=== PATIENT | female | born 1975 | race African-American/Black ===

== ENCOUNTER 2017-07-28 08:08 | Emergency (ER) | payer MEDICAID ==
[~2017-07-28] VITALS: Ht 157.5 cm; Wt 59.0 kg
[~2017-07-28 08:08] MED LIST: HYDR2TAB4 PO; IBUP800T37 PO; METH0.2T6 PO; ONDA4TAB PO
[2017-07-28] MEDS ORDERED: NS(*) 0.9% 1000 ML BAG 1,000 ML IV ONE (08:30)
[2017-07-28] MEDS ORDERED: ONDANSETRON 4 MG/2 ML VIAL IVP ONE (08:30)
[2017-07-28] MEDS ORDERED: GI COCKTAIL 60 ML BTL PO PRN (08:30)
--- NOTE | 2017-07-28 08:37 | ER Report ---
History and Physical Time Seen By MD: 08:20 Hx. of Stated Complaint: PT PRESENTS WITH EPIGASTRIC PAIN SINCE LAST NIGHT, AFTER EATING SPAGHETTI, NO N/V/D HPI/ROS CHIEF COMPLAINT: Abdominal pain HISTORY OF PRESENT ILLNESS: This is a 42-year-old female from [facility] the country 13 years she is a G9 para 7 comes emergency Department today last menstrual period was last month on the with epigastric pain worse with lying flat made worse with food has a known history of gastric reflux disorder was. With Gen. surgery for upper endoscopy failed to do such comes in today since she's been on medication but none recently for her upper GI issues denies any urinary bladder bowel incontinence denies any nausea vomiting diarrhea fever or chills pain is localized to the epigastrium described as burning sharp stabbing rating up into her throat again worse when she lays flat patient has no additional complaints at this time REVIEW OF SYSTEMS: Respiratory: No cough, no dyspnea. Cardiovascular: No chest pain, no palpitations. Gastrointestinal: Epigastric pain with radiation into the chest no vomiting no diarrhea Musculoskeletal: No back pain. Remainder of the 14 system rev: Yes Allergies: Coded Allergies: No Known Drug Allergies (Unverified , 07/28/17) Home Meds Discontinued Reported Medications Methylergonovine Mal 0.2 Mg Tab (METHERGINE 0.2 MG TAB) 0.2 Mg Tablet, 0.2 MG PO , TAB 03/04/17 Discontinued Scripts Ibuprofen (IBUPROFEN) 800 Mg Tablet, 1 TAB PO Q8H, #30 TAB 0 Refills Take with food every 8 hours. Prov:ALAINA CARRANZA MD 03/04/17 Hydromorphone Hcl (HYDROMORPHONE HCL) 2 Mg Tablet, 2-4 MG PO Q4H for PAIN, #20 TAB 0 Refills Prov:ALAINA CARRANZA MD 03/04/17 Ondansetron (ZOFRAN ODT) 4 Mg Tab.rapdis, 4 MG PO Q6H Y for NAUSEA/VOMITING, # 20 TAB.BILL Prov:CHITO IGLESIAS 02/19/17 Reviewed Nurses Notes: Yes Old Medical Records Reviewed: Yes Hx Smoking: No Exposure to Second Hand Smoke?: No Hx Substance Use Disorder: No Hx Alcohol Use: No Constitutional Vital Sign - Last 24 Hours 07/28/17 07/28/17 07/28/17 07/28/17 08:13 08:14 08:30 08:40 Temp 97.9 Resp 20 B/P (MAP) 141/104 141/104 (116) 127/95 (106) 132/96 (108) Physical Exam General Appearance: The patient is alert, has no immediate need for airway protection and no current signs of toxicity. Appears uncomfortable Eyes: Pupils equal and round no injection. Respiratory: Chest is non tender, lungs are clear to auscultation. Cardiac: regular rate and rhythm [ ] Gastrointestinal: Abdominal examination shows some mild tenderness to deep palpation in the epigastrium otherwise of the 4 quadrants unremarkable no rebound guarding or masses Musculoskeletal: Neck: Neck is supple and non tender. Extremities have full range of motion and are non tender. Skin: No rashes or lesions. [ ] DIFFERENTIAL DIAGNOSIS: After history and physical exam differential diagnosis was considered for gastroesophageal reflux gastritis acute gastritis alcoholic pancreatitis pancreatitis gallstone pancreatitis cardiac myopathy cardiac ischemia Medical Decision Making Data Points Result Diagram: 07/28/17 0850 07/28/17 0850 Laboratory Hematology Test 07/28/17 08:41 07/28/17 08:50 Urine Color Yellow Urine Clarity Clear Urine pH 5.0 pH (4.8-9.5) Urine Specific [place] 1.018 Urine Protein Negative mg/dL (NEGATIVE) Urine Glucose (UA) Negative mg/dL (NEGATIVE) Urine Ketones Negative mg/dL (NEGATIVE) Urine Blood Negative (NEGATIVE) Urine Nitrite Negative (NEGATIVE) Urine Bilirubin Negative (NEGATIVE) Urine Urobilinogen Negative mg/dL (0.2-1.9) Urine Leukocyte Esterase Negative (NEGATIVE) Urine RBC 1 /HPF (0-2/HPF) Urine WBC 1 /HPF (0-5/HPF) Urine Squamous Epithelial Cells Many /LPF (</=FEW) Urine Bacteria Negative /HPF (NONE-FEW) Urine Mucus Few /HPF (NONE-FEW) Red Blood Count 4.95 M/uL (4.17-5.56) Mean Corpuscular Volume 82.8 fL (80.0-96.0) Mean Corpuscular Hemoglobin 28.1 pg (26.0-33.0) Mean Corpuscular Hemoglobin Concent 33.9 g/dL (32.0-36.0) Red Cell Distribution Width 14.9 % (11.5-14.5) Mean Platelet Volume 8.9 fL (7.2-11.1) Neutrophils (%) (Auto) 60.6 % (39.4-72.5) Lymphocytes (%) (Auto) 31.3 % (17.6-49.6) Monocytes (%) (Auto) 6.2 % (4.1-12.4) Eosinophils (%) (Auto) 1.0 % (0.4-6.7) Basophils (%) (Auto) 0.9 % (0.3-1.4) Nucleated RBC Relative Count (auto) 0.1 /100WBC Neutrophils # (Auto) 4.1 K/uL (2.0-7.4) Lymphocytes # (Auto) 2.1 K/uL (1.3-3.6) Monocytes # (Auto) 0.4 K/uL (0.3-1.0) Eosinophils # (Auto) 0.1 K/uL (0.0-0.5) Basophils # (Auto) 0.1 K/uL (0.0-0.1) Nucleated RBC Absolute Count (auto) 0.01 K/uL Prothrombin Time 13.2 seconds (12.0-14.4) Prothromb Time International Ratio 1.00 Activated Partial Thromboplast Time 27 seconds (23-35) Sodium Level 141 mmol/L (137-145) Potassium Level 4.0 mmol/L (3.5-5.0) Chloride Level 104 mmol/L (98-107) Carbon Dioxide Level 21 mmol/L (22-31) Blood Urea Nitrogen 8 mg/dl (7-18) Creatinine 0.80 mg/dl (0.52-1.04) Glomerular Filtration Rate Calc > 60.0 Random Glucose 111 mg/dl (75-110) Calcium Level 9.7 mg/dl (8.4-10.2) Total Bilirubin 0.6 mg/dl (0.2-1.3) Aspartate Amino Transf (AST/SGOT) 20 U/L (0-35) Alanine Aminotransferase (ALT/SGPT) 28 U/L (0-56) Alkaline Phosphatase 108 U/L (0-126) Troponin I < 0.012 ng/ml Total Protein 8.9 gm/dl (6.3-8.2) Albumin 4.6 g/dl (3.5-5.0) Lipase 57 U/L (23-300) Human Chorionic Gonadotropin, Qual Negative (NEGATIVE) Serum Alcohol < 10 mg/dl Chemistry Test 07/28/17 08:41 07/28/17 08:50 Urine Color Yellow Urine Clarity Clear Urine pH 5.0 pH (4.8-9.5) Urine Specific [place] 1.018 Urine Protein Negative mg/dL (NEGATIVE) Urine Glucose (UA) Negative mg/dL (NEGATIVE) Urine Ketones Negative mg/dL (NEGATIVE) Urine Blood Negative (NEGATIVE) Urine Nitrite Negative (NEGATIVE) Urine Bilirubin Negative (NEGATIVE) Urine Urobilinogen Negative mg/dL (0.2-1.9) Urine Leukocyte Esterase Negative (NEGATIVE) Urine RBC 1 /HPF (0-2/HPF) Urine WBC 1 /HPF (0-5/HPF) Urine Squamous Epithelial Cells Many /LPF (</=FEW) Urine Bacteria Negative /HPF (NONE-FEW) Urine Mucus Few /HPF (NONE-FEW) White Blood Count 6.8 k/uL (4.5-11.0) Red Blood Count 4.95 M/uL (4.17-5.56) Hemoglobin 13.9 g/dL (12.0-16.0) Hematocrit 41.0 % (34.0-47.0) Mean Corpuscular Volume 82.8 fL (80.0-96.0) Mean Corpuscular Hemoglobin 28.1 pg (26.0-33.0) Mean Corpuscular Hemoglobin Concent 33.9 g/dL (32.0-36.0) Red Cell Distribution Width 14.9 % (11.5-14.5) Platelet Count 278 K/uL (150-450) Mean Platelet Volume 8.9 fL (7.2-11.1) Neutrophils (%) (Auto) 60.6 % (39.4-72.5) Lymphocytes (%) (Auto) 31.3 % (17.6-49.6) Monocytes (%) (Auto) 6.2 % (4.1-12.4) Eosinophils (%) (Auto) 1.0 % (0.4-6.7) Basophils (%) (Auto) 0.9 % (0.3-1.4) Nucleated RBC Relative Count (auto) 0.1 /100WBC Neutrophils # (Auto) 4.1 K/uL (2.0-7.4) Lymphocytes # (Auto) 2.1 K/uL (1.3-3.6) Monocytes # (Auto) 0.4 K/uL (0.3-1.0) Eosinophils # (Auto) 0.1 K/uL (0.0-0.5) Basophils # (Auto) 0.1 K/uL (0.0-0.1) Nucleated RBC Absolute Count (auto) 0.01 K/uL Prothrombin Time 13.2 seconds (12.0-14.4) Prothromb Time International Ratio 1.00 Activated Partial Thromboplast Time 27 seconds (23-35) Glomerular Filtration Rate Calc > 60.0 Calcium Level 9.7 mg/dl (8.4-10.2) Total Bilirubin 0.6 mg/dl (0.2-1.3) Aspartate Amino Transf (AST/SGOT) 20 U/L (0-35) Alanine Aminotransferase (ALT/SGPT) 28 U/L (0-56) Alkaline Phosphatase 108 U/L (0-126) Troponin I < 0.012 ng/ml Total Protein 8.9 gm/dl (6.3-8.2) Albumin 4.6 g/dl (3.5-5.0) Lipase 57 U/L (23-300) Human Chorionic Gonadotropin, Qual Negative (NEGATIVE) Serum Alcohol < 10 mg/dl Coagulation Test 07/28/17 08:50 Prothrombin Time 13.2 seconds Prothromb Time International Ratio 1.00 Activated Partial Thromboplast Time 27 seconds Toxicology Test 07/28/17 08:50 Serum Alcohol < 10 mg/dl Urinalysis Test 07/28/17 08:41 Urine Color Yellow Urine Clarity Clear Urine pH 5.0 pH (4.8-9.5) Urine Specific [place] 1.018 Urine Protein Negative mg/dL (NEGATIVE) Urine Glucose (UA) Negative mg/dL (NEGATIVE) Urine Ketones Negative mg/dL (NEGATIVE) Urine Blood Negative (NEGATIVE) Urine Nitrite Negative (NEGATIVE) Urine Bilirubin Negative (NEGATIVE) Urine Urobilinogen Negative mg/dL (0.2-1.9) Urine Leukocyte Esterase Negative (NEGATIVE) Urine RBC 1 /HPF (0-2/HPF) Urine WBC 1 /HPF (0-5/HPF) Urine Squamous Epithelial Cells Many /LPF (</=FEW) Urine Bacteria Negative /HPF (NONE-FEW) Urine Mucus Few /HPF (NONE-FEW) ED Course/Re-evaluation ED Course ED clinical course 42-year-old female with obvious gastroesophageal reflux was started on PPI and pain medication seen by surgery at bedside due to an ultrasound demonstrating cholelithiasis with choledocholithiasis will follow up as an outpatient for elective gallbladder removal Decision to Disposition Date: Jul 28, 2017 Decision to Disposition Time: 12:00 Depart Departure Latest Vital Signs Vital Signs Date Time Temp Pulse Resp B/P (MAP) Pulse Ox O2 Delivery O2 Flow Rate FiO2 07/28/17 08:40 132/96 (108) 07/28/17 08:13 97.9 20 Impression: Primary Impression: GERD (gastroesophageal reflux disease) Additional Impression: Gall bladder stones Condition: Improved Disposition: HOME OR SELF-CARE Referrals: JES ZAVALA MD 5 Days New Scripts Pantoprazole Sodium (PROTONIX) 40 Mg Granpkt.dr 40 MG PO QDAY for 10 Days, #10 PACK Prov: PREETHI RAYA MD 07/28/17 Hydrocodone Bit/Acetaminophen (NORCO 5-325 TABLET) 1 Each Tablet 1 EACH PO 2-3XD for 10 Days, #14 TAB Prov: PREETHI RAYA MD 07/28/17 Patient Instructions: Gastroesophageal Reflux Disease (DC) Problem Qualifiers PREETHI RAYA MD Jul 28, 2017 08:37
[2017-07-28] MEDS ORDERED: MAG HYD/AL HYD/SIMETH 30ML UDC PO ONE (09:00)
[2017-07-28] MEDS ORDERED: LIDOCAINE 2% VISC SLN 15ML UDC PO ONE (09:00)
[2017-07-28 09:07] LABS: PLATELET COUNT, AUTOMATED 278 K/uL (150-450)
--- NOTE | 2017-07-28 09:10 | EKG ---
FACILITY: [facility] - [place] PATIENT NAME: AZAM GILBERT : [id number] MR: [id number] V: [id number] EXAM DATE: ORDERING PHYSICIAN: PREETHI RAYA TECHNOLOGIST: Delmar Curtis Reason : Blood Pressure : / mmHG Vent. Rate : 089 BPM Atrial Rate : 089 BPM P-R Int : 164 ms QRS Dur : 076 ms QT Int : 356 ms P-R-T Axes : 016 030 052 degrees QTc Int : 433 ms Normal sinus rhythm Normal ECG When compared with ECG of 19-FEB-2017 13:06, Unchanged Confirmed by AYDE DAVIS ([id number]) on 07/28/2017 12:31:56 PM Referred By: Confirmed By:AYDE DAVIS
--- NOTE | 2017-07-28 10:16 | RADIOLOGY IMAGING REPORT ---
[place] [facility] [place]IENT NAME: Susana Cornejo : 1975 MR: [id number] V: [id number] EXAM DATE: ORDERING PHYSICIAN: PREETHI RAYA TECHNOLOGIST: Location: [facility] Patient: Susana Cornejo : 1975 Visit/Account:[id number] Date of Sevice: 07/28/2017 Exam type: CHEST PA AND LAT History: pain Comparison: None. Findings: The lungs are free of acute effusions, infiltrates or edema. No evidence of a pneumothorax or pneumo mediastinum. Cardiac silhouette is normal in size. The trachea is in midline. IMPRESSION: 1. No acute cardiopulmonary process seen Report Dictated By: Chika Cosme MD at 07/28/2017 10:11 AM Report E-Signed By: Chika Cosme MD at 07/28/2017 10:12 AM WSN:[email or web address]
--- NOTE | 2017-07-28 10:33 | RADIOLOGY IMAGING REPORT ---
FACILITY: [facility] PATIENT NAME: Susana Cornejo : 1975 MR: [id number] V: [id number] EXAM DATE: ORDERING PHYSICIAN: PREETHI RAYA TECHNOLOGIST: Location: [facility] Patient: Susana Cornejo : 1975 Visit/Account:[id number] Date of Sevice: 07/28/2017 GALLBLADDER HISTORY: Abdomen pain, sick last night COMPARISON: None. FINDINGS: Gallbladder: There are several shadowing stones within the gallbladder. Gallbladder wall is not thic kened measuring 2.6 mm. There is a negative Marley sign by technologist notation Liver: Negative. Common duct: Normal, 2.8 mm diameter. Pancreas: Partially obscured by bowel, visualized aspects unremarkable. Right kidney: Right kidney appears unremarkable measuring 9.7 cm in length Upper abdominal aorta and IVC: Patent. Ascites: None visualized. IMPRESSION: Cholelithiasis although no evidence of gallbladder wall thickening, positive Marley sign or biliary d uctal dilatation Report Dictated By: Chika Cosme MD at 07/28/2017 10:25 AM Report E-Signed By: Chika Cosme MD at 07/28/2017 10:28 AM WSN:[email or web address]
[2017-07-28 12:00] VITALS: BP 127/90
[2017-07-28] MEDS ORDERED: HYDR-4309 PO (12:02)
[2017-07-28] MEDS ORDERED: PANT40SU3 PO (12:02)
--- NOTE | 2017-07-28 12:20 | General Surgery 1 H&P ---
History of Present Illness Chief Complaint epigastric pain History of Present Illness 42 yo female who speaks Palau[place] presents with epigastric pain. it is a steady sever pain with radiation to the back. she has had a few episodes in the past but not this severe. she has nausea. she had fever. she was seen in ed . wbc and chem panel wnl. ultrasound shows cholelithiasis. History Other Past Surgeries: none Home Meds Active Scripts Pantoprazole Sodium (PROTONIX) 40 Mg Granpkt.dr, 40 MG PO QDAY for 10 Days, #10 PACK Prov:PREETHI RAYA MD 07/28/17 Hydrocodone Bit/Acetaminophen (NORCO 5-325 TABLET) 1 Each Tablet, 1 EACH PO 2- 3XD for 10 Days, #14 TAB Prov:PREETHI RAYA MD 07/28/17 Discontinued Reported Medications Methylergonovine Mal 0.2 Mg Tab (METHERGINE 0.2 MG TAB) 0.2 Mg Tablet, 0.2 MG PO , TAB 03/04/17 Discontinued Scripts Ibuprofen (IBUPROFEN) 800 Mg Tablet, 1 TAB PO Q8H, #30 TAB 0 Refills Take with food every 8 hours. Prov:ALAINA CARRANZA MD 03/04/17 Hydromorphone Hcl (HYDROMORPHONE HCL) 2 Mg Tablet, 2-4 MG PO Q4H for PAIN, #20 TAB 0 Refills Prov:ALAINA CARRANZA MD 03/04/17 Ondansetron (ZOFRAN ODT) 4 Mg Tab.rapdis, 4 MG PO Q6H Y for NAUSEA/VOMITING, # 20 TAB.BILL Prov:CHITO IGLESIAS 02/19/17 Allergies: Coded Allergies: No Known Drug Allergies (Unverified , 07/28/17) Review of Systems All Systems Reviewed/Normal: Yes Exam Vital Signs Date Time Temp Pulse Resp B/P (MAP) Pulse Ox O2 Delivery O2 Flow Rate FiO2 07/28/17 08:40 132/96 (108) 07/28/17 08:13 97.9 20 General Appearance: Alert, Awake, No Acute Distress Cardiovascular: Regular Rate and Rhythm Respiratory: Clear to Auscultation GI: Abd Soft and Non-Tender Medical Decision Making Data Points Result Diagram: 07/28/17 0850 07/28/17 0850 Assessment and Plan Problems: (1) Gall bladder stones Status: Acute Assessment & Plan: recommend laparoscopic cholecystectomy and cholangiogram. discussed procedure complications and recovery with pt using hog counter service via phone and using her son to interpret. they seem to understand and wish to proceed. ww will schedule for Wednesday. Copies to: JES ZAVALA MD Venous Thromboembolism Antithrombotics Is Pt On Any Antithrombotics?: No JES ZAVALA MD Jul 28, 2017 12:20
== END 2017-07-28 12:10 | disposition home or self-care (01) ==
LOC: ER 08:19
DX: K21.9 Gastro-esophageal reflux disease without esophagitis (principal); K80.80 Other cholelithiasis without obstruction
CPT/HCPCS: 71046; 76705; 81001; 83690; 84484; 84703; 85025; 85610; 85730; 93005; 96361; 96374; 99284; G0480; J2405; J7030; 80320; 82040; 82247; 82310; 82374; 82435; 82565; 82947; 84075; 84132; 84155; 84295; 84450; 84460; 84520

== ENCOUNTER 2017-08-03 00:32 | Day surgery (SDC) | payer MEDICAID ==
--- NOTE | 2017-07-28 16:34 | HISTORY AND PHYSICAL ---
DATE OF ADMISSION: August 03, 2017 CHIEF COMPLAINT Epigastric pain. HISTORY OF PRESENT ILLNESS This is a 42-year-old healthy female who speaks Chadian, who presented to the emergency room with epigastric pain. Her history was obtained through the bilingual interpreter via the phone. She says it is a steady, severe pain. It radiates through to the back. She has had a few episodes in the past, but they were not as severe as this. This episode caused her to come to the emergency room. She has associated nausea. She says she has had some fever in the past. On being seen in the emergency room, her white count was normal. Her chemistry panel was normal. She had an ultrasound examination which revealed cholelithiasis. PAST SURGICAL HISTORY None. ALLERGIES She has no known allergies. CURRENT MEDICATIONS She is currently on no medications. REVIEW OF SYSTEMS No cardiac, pulmonary, liver or kidney disease, diabetes, hypertension. No history of deep vein thrombosis. PHYSICAL EXAMINATION GENERAL: Examination reveals a 42-year-old female in no acute distress. LUNGS: Clear. HEART: Regular rhythm. ABDOMEN: Soft, nontender. No palpable masses. IMPRESSION Cholelithiasis and cholecystitis. PLAN Laparoscopic cholecystectomy with intraoperative cholangiogram. We discussed the procedure with the patient using a phone bilingual interpreter, as well as using her son to interpret. We discussed the complications and recovery, the operation and how long it would take, the fact that she needs to be n.p.o. and that she will be going home the same day of the procedure. We have tentatively scheduled this for one week on a Wednesday. She seems to understand and wishes to proceed. INNA
[2017-08-03] VITALS (9 sets, daily range): BP systolic 119–138; BP diastolic 82–97
[~2017-08-03] VITALS: Ht 157.5 cm; Wt 59.0 kg
[~2017-08-03 00:32] MED LIST changes: +HYDR-4309 PO; +PANT40SU3 PO
[2017-08-03] MEDS ORDERED: ROPIVACAINE 0.2% 20 ML VIAL ONE (06:46)
[2017-08-03] MEDS ORDERED: IOPAMIDOL 61% 75 ML INFUS BTL 75 ML ONE (06:46)
[2017-08-03] MEDS ORDERED: fentaNYL CITR 250 MCG/5 ML AMP ONE (07:48)
[2017-08-03] MEDS ORDERED: LIDOCAINE MPF 1% 5 ML VIAL ONE (07:49)
[2017-08-03] MEDS ORDERED: PROPOFOL EMUL(*) 10MG/ML 20 ML 20 ML ONE (07:49)
[2017-08-03] MEDS ORDERED: NORMOSOL R SOLN(*) 1000 ML BAG 1,000 ML IV PRN (08:00)
[2017-08-03] MEDS ORDERED: MIDAZOLAM 2 MG/2 ML VIAL IVP PRN (08:00)
[2017-08-03] MEDS ORDERED: FAMOTIDINE 20 MG TAB PO ONE (08:00)
[2017-08-03] MEDS ORDERED: LIDOCAINE/SOD BICARB 8.4% SYR ID ONE (08:00)
[2017-08-03] MEDS ORDERED: cefOXitin/DEX(*) 2GM/50ML PREM 50 ML IVPB ONE (08:00)
[2017-08-03] MEDS ORDERED: FAMOTIDINE(*) 20MG/50ML PREMIX 50 ML IVPB ONE (08:12)
--- NOTE | 2017-08-03 08:26 | Post Operative Progress Note ---
Post Operative Progress Note Date: Aug 03, 2017 Time: 09:43 Surgeon: ron Anesthesia: dr spicer Pre-Op Diagnosis: cholelithiasis and cholecystitis Post-Op Diagnosis: same Procedure(s): lap sandie with JES Cerrato MD Aug 03, 2017 08:26
[2017-08-03] MEDS ORDERED: HYDR-4309 PO (08:27)
[2017-08-03] MEDS ORDERED: KET10 PO (08:27)
--- NOTE | 2017-08-03 08:28 | Short(Outpt) Discharge Summary ---
Discharge Summary Reason for Hosp/Final Diag: (1) Cholelithiasis and cholecystitis without obstruction Hospital Course & Plan: lap sandie with gram Departure Discharge to: Home Discharge Instructions Home Meds Active Scripts Hydrocodone Bit/Acetaminophen (NORCO 5-325 TABLET) 1 Each Tablet, 1 EACH PO Q4H Y for PAIN, #30 TAB Prov:JES ZAVALA MD 08/03/17 Ketorolac Tromethamine (KETOROLAC TROMETHAMINE) 10 Mg Tab, 10 MG PO Q6H, #16 TAB Prov:JES ZAVALA MD 08/03/17 Pantoprazole Sodium (PROTONIX) 40 Mg Granpkt.dr, 40 MG PO QDAY for 10 Days, #10 PACK Prov:PREETHI RAYA MD 07/28/17 Hydrocodone Bit/Acetaminophen (NORCO 5-325 TABLET) 1 Each Tablet, 1 EACH PO 2- 3XD for 10 Days, #14 TAB Prov:PREETHI RAYA MD 07/28/17 Discontinued Reported Medications Methylergonovine Mal 0.2 Mg Tab (METHERGINE 0.2 MG TAB) 0.2 Mg Tablet, 0.2 MG PO , TAB 03/04/17 Discontinued Scripts Ibuprofen (IBUPROFEN) 800 Mg Tablet, 1 TAB PO Q8H, #30 TAB 0 Refills Take with food every 8 hours. Prov:ALAINA CARRANZA MD 03/04/17 Hydromorphone Hcl (HYDROMORPHONE HCL) 2 Mg Tablet, 2-4 MG PO Q4H for PAIN, #20 TAB 0 Refills Prov:ALAINA CARRANZA MD 03/04/17 Ondansetron (ZOFRAN ODT) 4 Mg Tab.rapdis, 4 MG PO Q6H Y for NAUSEA/VOMITING, # 20 TAB.BILL Prov:CHITO IGLESIAS 02/19/17 Diet: Regular Activity: As Tolerated Special Instructions: ice to incision for 48 hours remove bandage and shower to see me in one week, call [phone] for apt JES ZAVALA MD Aug 03, 2017 08:28
[2017-08-03] MEDS ORDERED: SUGAMMADEX SOD 200 MG/2 ML SDV ONE (09:00)
[2017-08-03] MEDS ORDERED: ROCURONIUM BROM 10 MG/ML 5 ML ONE (09:00)
[2017-08-03] MEDS ORDERED: DEXAMETHASONE SOD 4 MG/ML VIAL ONE (09:00)
[2017-08-03] MEDS ORDERED: ONDANSETRON 4 MG/2 ML VIAL ONE (09:01)
[2017-08-03] MEDS ORDERED: KETOROLAC 30 MG/ML VIAL ONE (09:01)
--- NOTE | 2017-08-03 10:12 | RADIOLOGY IMAGING REPORT ---
FACILITY: [facility] PATIENT NAME: Susana Cornejo : 1975 MR: [id number] V: [id number] EXAM DATE: ORDERING PHYSICIAN: JES ZAVALA TECHNOLOGIST: Location: [facility] - [place] Patient: Susana Cornejo : 1975 Visit/Account:[id number] Date of Sevice: 08/03/2017 EXAMINATION: Interoperative Cholangiogram 08/03/2017 6:52 AM HISTORY: CHOLECYSISITIS COMPARISON: Ultrasound 07/28/2017 FLUOROSCOPY TIME: 32.1 seconds DOSE: DAP was 0.19069 mGy*m2. FINDINGS: Intraoperative fluoroscopy was provided with cholangiography performed with contrast injec tion via the cystic duct remnant. On the initial series are all more wall rounded lucencies in the d uct however these are not apparent on a second series obtained. Duct is smooth contours. Free spill in the duodenum is demonstrated. IMPRESSION: 1. Likely air bubbles versus possible choledocholithiasis. 2. Otherwise unremarkable intraoperative cholangiogram. Report Dictated By: Drew Price MD at 08/03/2017 10:05 AM Report E-Signed By: Drew Price MD at 08/03/2017 10:08 AM WSN:[email or web address]
[2017-08-03] MEDS ORDERED: APAP/HYDROCODONE 325/5 TAB ONE ×2 (10:13→16:26)
[2017-08-03] MEDS ORDERED: PROMETHAZINE 25 MG/ML 1 ML AMP ONE (10:20)
[2017-08-03] MEDS ORDERED: fentaNYL CITR 100 MCG/2 ML AMP ONE (10:38)
[2017-08-03] MEDS ORDERED: ACETAMINOPHEN(*)1000 MG/100 ML 100 ML IVPB ONE (13:31)
--- NOTE | 2017-08-03 20:12 | OPERATIVE REPORT 1 ---
EVENT DATE: August 03, 2017 SURGEON: Naman Dai MD ANESTHESIOLOGIST: Anthony Chowdhury MD ANESTHESIA: General. PREOPERATIVE DIAGNOSES 1. Cholelithiasis. 2. Cholecystitis. POSTOPERATIVE DIAGNOSES 1. Cholelithiasis. 2. Cholecystitis. PROCEDURE PERFORMED Laparoscopic cholecystectomy with intraoperative cholangiogram. DESCRIPTION OF PROCEDURE The patient was placed in the supine position and given general anesthetic. Her abdomen was prepped and draped in a sterile fashion. The skin was anesthetized with 0.2% ropivacaine. A small incision was made above the umbilicus. A Veress needle was inserted. The abdomen was inflated with CO2. We placed a 5 mm port under direct vision. We then placed two 5 mm ports in the right subcostal region and a 10 mm port in the epigastrium. She had some adhesions from the liver to the anterior abdominal wall. These were taken down with sharp dissection to allow the liver to be raised. We then grasped the gallbladder and raised it cephalad. There were adhesions on the undersurface of the gallbladder. These were taken down with sharp dissection. We then dissected out the cystic duct-gallbladder junction, placed a clip there, opened the cystic duct, inserted a Taut catheter, and obtained cholangiograms which were normal. The clip was removed. The Taut catheter was removed. The cystic duct was triply clipped proximally and transected. The cystic artery was dissected out, doubly clipped proximally, once distally, and transected. We then used electrocautery to dissect the gallbladder from the bed of the liver. This dissection went very nicely. We had excellent hemostasis. The gallbladder was placed in an Endo Pouch and removed from the field. We inspected for bleeding. None was noted. The ports were removed under direct vision. No bleeding was noted. The skin was closed with interrupted 4-0 Maxon. Steri-Strips and an Airstrip were placed. The patient tolerated the procedure well with no apparent complications. [facility]
== END 2017-08-03 10:40 | disposition home or self-care (01) ==
LOC: OR 00:32
PROVIDERS: ATTEND Surgery
DX: K80.10 Calculus of gallbladder with chronic cholecystitis without obstruction (principal)
CPT/HCPCS: 47563; 74300; 81025; 88304; J0694; J1100; J1885; J2001; J2250; J2405; J2550; J2704; J2795; J3010; J3490; Q9967

== ENCOUNTER 2017-08-16 16:13 | Emergency (ER) | payer MEDICAID ==
[~2017-08-16] VITALS: Ht 162.6 cm; Wt 68.0 kg
[~2017-08-16 16:13] MED LIST changes: +KET10 PO
--- NOTE | 2017-08-16 16:17 | ER Report ---
History and Physical Time Seen By MD: 16:15 Hx. of Stated Complaint: Right scapular pain, constipation HPI/ROS 42-year-old had a cholecystectomy on 08/03 is on by mouth pain medication at home puncture sites look well healed started having right scapular pain in the last 24 hours reviewing cholangiogram from the surgery one set of images showed possible stones in the common bile duct Remainder of the 14 system rev: Yes Allergies: Coded Allergies: No Known Drug Allergies (Unverified , 08/16/17) Home Meds Active Scripts Docusate Sodium (COLACE) 100 Mg Capsule, 100 MG PO HS for 7 Days, CAPSULE Prov:JEMAL ANDREWS 08/16/17 Discontinued Scripts Hydrocodone Bit/Acetaminophen (NORCO 5-325 TABLET) 1 Each Tablet, 1 EACH PO Q4H Y for PAIN, #30 TAB Prov:JES ZAVALA MD 08/03/17 Ketorolac Tromethamine (KETOROLAC TROMETHAMINE) 10 Mg Tab, 10 MG PO Q6H, #16 TAB Prov:JES ZAVALA MD 08/03/17 Pantoprazole Sodium (PROTONIX) 40 Mg Granpkt.dr, 40 MG PO QDAY for 10 Days, #10 PACK Prov:PREETHI RAYA MD 07/28/17 Hydrocodone Bit/Acetaminophen (NORCO 5-325 TABLET) 1 Each Tablet, 1 EACH PO 2- 3XD for 10 Days, #14 TAB Prov:PREETHI RAYA MD 07/28/17 Past Medical/Surgical History awa on 08/03/17 Reviewed Nurses Notes: Yes Old Medical Records Reviewed: Yes Hx Smoking: No Smoking Status: Never Smoker Exposure to Second Hand Smoke?: No Hx Substance Use Disorder: No Hx Alcohol Use: No Family History of: Other Constitutional Vital Sign - Last 24 Hours 08/16/17 08/16/17 08/16/17 08/16/17 16:15 16:25 16:33 16:43 Temp 98.3 Pulse 80 89 Resp 16 B/P (MAP) 151/96 157/111 (126) 151/96 (114) Pulse Ox 95 96 O2 Delivery Room Air 08/16/17 08/16/17 08/16/17 08/16/17 17:00 17:13 17:30 17:43 Pulse 89 82 B/P (MAP) 144/100 (115) 144/96 (112) Pulse Ox 95 95 08/16/17 08/16/17 08/16/17 08/16/17 17:48 17:53 18:13 18:18 Pulse 79 81 96 96 Pulse Ox 96 96 95 95 08/16/17 08/16/17 08/16/17 08/16/17 18:23 18:28 18:33 18:38 Pulse 93 91 90 91 Pulse Ox 95 94 95 94 08/16/17 08/16/17 08/16/17 18:43 18:48 19:10 Pulse 89 93 84 B/P (MAP) 130/99 (109) Pulse Ox 95 95 95 O2 Delivery Room Air Physical Exam 42-year-old female alert and oriented anxious mild distress HEENT head is normocephalic/atraumatic tympanic membranes are non-reddened throat is non- reddened neck is supple no JVD heart rate is regular no murmurs rubs or gallops lungs are decreased bilateral bases has tenderness to right scapular area to palpation abdomen is obese mild tenderness midepigastric area bowel sounds 4 quadrants. Extremities no peripheral edema Medical Decision Making Data Points Result Diagram: 08/16/17 1648 08/16/17 1648 Laboratory Hematology Test 08/16/17 00:00 08/16/17 16:30 08/16/17 16:48 Human Chorionic Gonadotropin, Qual Negative (NEGATIVE) Urine Color Yellow Urine Clarity Clear Urine pH 6.0 pH (4.8-9.5) Urine Specific Collins 1.021 Urine Protein Negative mg/dL (NEGATIVE) Urine Glucose (UA) Negative mg/dL (NEGATIVE) Urine Ketones Negative mg/dL (NEGATIVE) Urine Blood Negative (NEGATIVE) Urine Nitrite Negative (NEGATIVE) Urine Bilirubin Negative (NEGATIVE) Urine Urobilinogen Negative mg/dL (0.2-1.9) Urine Leukocyte Esterase Negative (NEGATIVE) Urine RBC None /HPF (0-2/HPF) Urine WBC 1 /HPF (0-5/HPF) Urine Squamous Epithelial Cells Many /LPF (</=FEW) Urine Bacteria Negative /HPF (NONE-FEW) Urine Mucus Few /HPF (NONE-FEW) Red Blood Count 4.68 M/uL (4.17-5.56) Mean Corpuscular Volume 83.5 fL (80.0-96.0) Mean Corpuscular Hemoglobin 28.5 pg (26.0-33.0) Mean Corpuscular Hemoglobin Concent 34.1 g/dL (32.0-36.0) Red Cell Distribution Width 14.9 % (11.5-14.5) Mean Platelet Volume 8.5 fL (7.2-11.1) Neutrophils (%) (Auto) 47.1 % (39.4-72.5) Lymphocytes (%) (Auto) 41.5 % (17.6-49.6) Monocytes (%) (Auto) 7.3 % (4.1-12.4) Eosinophils (%) (Auto) 3.4 % (0.4-6.7) Basophils (%) (Auto) 0.7 % (0.3-1.4) Nucleated RBC Relative Count (auto) 0.0 /100WBC Neutrophils # (Auto) 3.2 K/uL (2.0-7.4) Lymphocytes # (Auto) 2.9 K/uL (1.3-3.6) Monocytes # (Auto) 0.5 K/uL (0.3-1.0) Eosinophils # (Auto) 0.2 K/uL (0.0-0.5) Basophils # (Auto) 0.0 K/uL (0.0-0.1) Nucleated RBC Absolute Count (auto) 0.00 K/uL Sodium Level 139 mmol/L (137-145) Potassium Level 3.8 mmol/L (3.5-5.0) Chloride Level 103 mmol/L (98-107) Carbon Dioxide Level 22 mmol/L (22-31) Blood Urea Nitrogen 14 mg/dl (7-18) Creatinine 0.80 mg/dl (0.52-1.04) Glomerular Filtration Rate Calc > 60.0 Random Glucose 96 mg/dl (75-110) Lactate 1.0 mmol/L (0.7-2.1) Calcium Level 9.7 mg/dl (8.4-10.2) Total Bilirubin 0.4 mg/dl (0.2-1.3) Aspartate Amino Transf (AST/SGOT) 21 U/L (0-35) Alanine Aminotransferase (ALT/SGPT) 28 U/L (0-56) Alkaline Phosphatase 107 U/L (0-126) Total Protein 8.6 gm/dl (6.3-8.2) Albumin 4.7 g/dl (3.5-5.0) Amylase Level 100 U/L (0-110) Lipase 70 U/L (23-300) Chemistry Test 08/16/17 00:00 08/16/17 16:30 08/16/17 16:48 Human Chorionic Gonadotropin, Qual Negative (NEGATIVE) Urine Color Yellow Urine Clarity Clear Urine pH 6.0 pH (4.8-9.5) Urine Specific Collins 1.021 Urine Protein Negative mg/dL (NEGATIVE) Urine Glucose (UA) Negative mg/dL (NEGATIVE) Urine Ketones Negative mg/dL (NEGATIVE) Urine Blood Negative (NEGATIVE) Urine Nitrite Negative (NEGATIVE) Urine Bilirubin Negative (NEGATIVE) Urine Urobilinogen Negative mg/dL (0.2-1.9) Urine Leukocyte Esterase Negative (NEGATIVE) Urine RBC None /HPF (0-2/HPF) Urine WBC 1 /HPF (0-5/HPF) Urine Squamous Epithelial Cells Many /LPF (</=FEW) Urine Bacteria Negative /HPF (NONE-FEW) Urine Mucus Few /HPF (NONE-FEW) White Blood Count 6.9 k/uL (4.5-11.0) Red Blood Count 4.68 M/uL (4.17-5.56) Hemoglobin 13.3 g/dL (12.0-16.0) Hematocrit 39.1 % (34.0-47.0) Mean Corpuscular Volume 83.5 fL (80.0-96.0) Mean Corpuscular Hemoglobin 28.5 pg (26.0-33.0) Mean Corpuscular Hemoglobin Concent 34.1 g/dL (32.0-36.0) Red Cell Distribution Width 14.9 % (11.5-14.5) Platelet Count 257 K/uL (150-450) Mean Platelet Volume 8.5 fL (7.2-11.1) Neutrophils (%) (Auto) 47.1 % (39.4-72.5) Lymphocytes (%) (Auto) 41.5 % (17.6-49.6) Monocytes (%) (Auto) 7.3 % (4.1-12.4) Eosinophils (%) (Auto) 3.4 % (0.4-6.7) Basophils (%) (Auto) 0.7 % (0.3-1.4) Nucleated RBC Relative Count (auto) 0.0 /100WBC Neutrophils # (Auto) 3.2 K/uL (2.0-7.4) Lymphocytes # (Auto) 2.9 K/uL (1.3-3.6) Monocytes # (Auto) 0.5 K/uL (0.3-1.0) Eosinophils # (Auto) 0.2 K/uL (0.0-0.5) Basophils # (Auto) 0.0 K/uL (0.0-0.1) Nucleated RBC Absolute Count (auto) 0.00 K/uL Glomerular Filtration Rate Calc > 60.0 Lactate 1.0 mmol/L (0.7-2.1) Calcium Level 9.7 mg/dl (8.4-10.2) Total Bilirubin 0.4 mg/dl (0.2-1.3) Aspartate Amino Transf (AST/SGOT) 21 U/L (0-35) Alanine Aminotransferase (ALT/SGPT) 28 U/L (0-56) Alkaline Phosphatase 107 U/L (0-126) Total Protein 8.6 gm/dl (6.3-8.2) Albumin 4.7 g/dl (3.5-5.0) Amylase Level 100 U/L (0-110) Lipase 70 U/L (23-300) Urinalysis Test 08/16/17 16:30 Urine Color Yellow Urine Clarity Clear Urine pH 6.0 pH (4.8-9.5) Urine Specific Collins 1.021 Urine Protein Negative mg/dL (NEGATIVE) Urine Glucose (UA) Negative mg/dL (NEGATIVE) Urine Ketones Negative mg/dL (NEGATIVE) Urine Blood Negative (NEGATIVE) Urine Nitrite Negative (NEGATIVE) Urine Bilirubin Negative (NEGATIVE) Urine Urobilinogen Negative mg/dL (0.2-1.9) Urine Leukocyte Esterase Negative (NEGATIVE) Urine RBC None /HPF (0-2/HPF) Urine WBC 1 /HPF (0-5/HPF) Urine Squamous Epithelial Cells Many /LPF (</=FEW) Urine Bacteria Negative /HPF (NONE-FEW) Urine Mucus Few /HPF (NONE-FEW) EKG/Imaging EKG Interpretation EKG at 1630 showed normal sinus rhythm ventricular rate 88 QTc is 423 Monitor Interpretation: Normal Sinus Rhythm Imaging FACILITY: [facility] - [place], [place] PATIENT NAME: Susana Cornejo : 1975 MR: [id number] V: [id number] EXAM DATE: [id number] ORDERING PHYSICIAN: JEMAL ANDREWS TECHNOLOGIST: Location: [facility] - [place], [place] Patient: Susana Cornejo : 1975 Visit/Account:[id number] Date of Sevice: 08/16/2017 Technique: CHEST SINGLE AP HISTORY: Right scapular pain COMPARISON: Chest radiographs 07/28/2017 Findings: No lobar airspace consolidation. No pleural effusion or pneumothorax. The cardiomediastinal silhouette is unchanged. No acute fracture is noted. Impression: 1. No acute cardiopulmonary process. Report Dictated By: Bart Briggs DO at 08/16/2017 5:20 PM Report E-Signed By: Bart Briggs DO at 08/16/2017 5:22 PM WSN:[id number]: [facility] - [place], [place] ED Course/Re-evaluation Clinical Indication for ER IV: Hydration ED Course CT abdomen and pelvis was done with recent Awa history reading operative note it was questioned whether there were stones in the common bile duct during the cholangiogram Discussed results with the patient through the language line with [employer] nursery helper comes she states stools have been harder since being on narcotics after surgery will add Colace to her medical dictation. Regimen tonight's testing was negative CT ab pelvis surgical site was normal healing post cholecystectomy Re-evaluation [facility], [place] follow-up with her primary care physician testing tonight was negative she was comfortable upon dismissal was given instructions through the nursery helper language line Decision to Disposition Date: Aug 16, 2017 Decision to Disposition Time: 18:40 Depart Departure Latest Vital Signs Vital Signs Date Time Temp Pulse Resp B/P (MAP) Pulse Ox O2 Delivery O2 Flow Rate FiO2 08/16/17 19:10 84 130/99 (109) 95 Room Air 08/16/17 16:15 98.3 16 Impression: Primary Impression: Post-op pain Additional Impression: Constipation Condition: Improved Disposition: HOME OR SELF-CARE Referrals: SURGERY, GENERAL 2 Days New Scripts Docusate Sodium (COLACE) 100 Mg Capsule 100 MG PO HS for 7 Days, CAPSULE Prov: JEMAL ANDREWS 08/16/17 Patient Instructions: Constipation (ED) Additional Instructions: Drink plenty of water, medication as prescribed by your physician, will add Colace 1 bedtime to stop soften stools, transition to Tylenol for pain from narcotics Problem Qualifiers JEMAL ANDREWS Aug 16, 2017 16:17
[2017-08-16] MEDS ORDERED: NS(*) 0.9% 1000 ML BAG 1,000 ML IV ONE (16:29)
[2017-08-16] MEDS ORDERED: ONDANSETRON 4 MG/2 ML VIAL IVP ONE (16:30)
[2017-08-16] MEDS ORDERED: fentaNYL CITR 100 MCG/2 ML AMP IVP ONE (16:30)
--- NOTE | 2017-08-16 16:38 | EKG ---
FACILITY: [facility] PATIENT NAME: AZAM GILBERT : [id number] MR: [id number] V: [id number] EXAM DATE: ORDERING PHYSICIAN: JEMAL ANDREWS TECHNOLOGIST: STARR Curtis Reason : ABD\BACK PAIN Blood Pressure : / mmHG Vent. Rate : 088 BPM Atrial Rate : 088 BPM P-R Int : 166 ms QRS Dur : 072 ms QT Int : 350 ms P-R-T Axes : 002 037 050 degrees QTc Int : 423 ms Normal sinus rhythm Normal ECG When compared with ECG of 28-JUL-2017 08:49, No significant change was found Confirmed by AYDE DAVIS ([id number]) on 08/16/2017 10:57:39 PM Referred By: DARRYL Confirmed By:AYDE DAVIS
[2017-08-16 17:03] LABS: PLATELET COUNT, AUTOMATED 257 K/uL (150-450)
--- NOTE | 2017-08-16 17:26 | RADIOLOGY IMAGING REPORT ---
FACILITY: PATIENT NAME: Susana Cornejo : 1975 MR: [id number] V: [id number] EXAM DATE: ORDERING PHYSICIAN: JEMAL ANDREWS TECHNOLOGIST: Location: [facility] - [place] Patient: Susana Cornejo : 1975 Visit/Account:[id number] Date of Sevice: 08/16/2017 Technique: CHEST SINGLE AP HISTORY: Right scapular pain COMPARISON: Chest radiographs 07/28/2017 Findings: No lobar airspace consolidation. No pleural effusion or pneumothorax. The cardiomediastina l silhouette is unchanged. No acute fracture is noted. Impression: 1. No acute cardiopulmonary process. Report Dictated By: Bart Briggs DO at 08/16/2017 5:20 PM Report E-Signed By: Bart Briggs DO at 08/16/2017 5:22 PM WSN:[id number]
[2017-08-16] MEDS ORDERED: IOPAMIDOL 76% 75 ML INFUS BTL 75 ML ONE (17:42)
--- NOTE | 2017-08-16 18:40 | RADIOLOGY IMAGING REPORT ---
FACILITY: [facility] - [place] PATIENT NAME: Susana Cornejo : 1975 MR: [id number] V: [id number] EXAM DATE: ORDERING PHYSICIAN: JEMAL ANDREWS TECHNOLOGIST: Location: [facility] Patient: Susana Cornejo : 1975 Visit/Account:[id number] Date of Sevice: 08/16/2017 EXAMINATION: CT abdomen and pelvis with IV contrast HISTORY: Recent cholecystectomy. Right scapular pain. TECHNIQUE: Axial CT images of the abdomen and pelvis were obtained with IV contrast, with coronal a nd sagittal 2D reconstructed images. One of the following dose optimization techniques was utilized in the performance of this exam: Autom ated exposure control; adjustment of the mA and/or kV according to the patient's size; or use of an i terative reconstruction technique. Specific details can be referenced in the facility's radiology C T exam operational policy. Contrast: 75 mL of IV Isovue-370. COMPARISON: Abdominal ultrasound 07/28/2017. FINDINGS: Image quality is partially degraded by respiratory motion artifact. Liver: Negative. Gallbladder and bile ducts: New surgical changes of cholecystectomy, with surgical clips along the g allbladder fossa. No fluid collection or hematoma along the gallbladder fossa. No bile duct dilatatio n. Spleen: Negative. Pancreas: Negative. Adrenal glands: Negative. Kidneys: Negative. No hydronephrosis or urinary calculi. Bowel and peritoneum: The small bowel and colon are normal in caliber, without evidence of obstructi on or any focal inflammatory process. Unremarkable appendix in the mid right abdomen. No free fluid o r free intraperitoneal air. Pelvic structures: Unremarkable by CT. No large adnexal cyst in the pelvis. Lymph node assessment: Negative. Vessels: Negative. Musculoskeletal: Negative. Body wall: There is mild diastasis of the rectus abdominis muscles with some bulging of intra-abdomi nal contents along the midline abdominal wall above and below the umbilicus. No discrete hernia sac. Lung bases: Negative. IMPRESSION: 1. New surgical changes of cholecystectomy, with an unremarkable postoperative appearance. No fluid c ollection, hematoma, or bile duct dilatation. 2. No other acute intra-abdominal findings. Report Dictated By: Daniel Chahal MD at 08/16/2017 6:31 PM Report E-Signed By: Daniel Chahal MD at 08/16/2017 6:36 PM WSN:[id number]
[2017-08-16] MEDS ORDERED: DOCU-416 PO (18:56)
[2017-08-16 19:10] VITALS: BP 130/99
== END 2017-08-16 19:10 | disposition home or self-care (01) ==
LOC: ER 16:14
DX: G89.18 Other acute postprocedural pain (principal); K59.00 Constipation, unspecified
CPT/HCPCS: 71045; 74177; 81001; 82150; 83605; 83690; 84703; 85025; 93005; 96361; 96374; 96375; 99284; J2405; J3010; J7030; Q9967; 82040; 82247; 82310; 82374; 82435; 82565; 82947; 84075; 84132; 84155; 84295; 84450; 84460; 84520